=== PATIENT | male | born 1955 | race Caucasian/White ===

== ENCOUNTER 2018-09-30 09:52 | Day surgery (SDC) | payer OTHER ==
[~2018-09-30] VITALS: Ht 193 cm; Wt 157.4 kg
[~2018-09-30 09:52] MED LIST: ALEV220T22 PO; ALLO100T PO; ASPI81TA26 PO; ATOR80TA59 PO; BACL10TA2 PO; BIOT50004 PO; CALC500C16 PO; CALC600T18 PO; CILO100T PO; DICL1GEL3 TOP; DULC5TAB PO; FISH1000 PO; GLUC1CAP10 PO; HYDR25TAB PO; LIDOCAINE 2% INJ 100 MG/5 ML SDV (FOR ANES.) As Ordered ONE; LISI40TA PO; MAGN1TAB26 PO; METF500T13 PO; NICO250C PO; NS 1,000 ML IV ONE; OMEP20CA3 PO; PROAAER10 INH; PROBCAP14 PO; PROPOFOL 200 MG/20 ML VIAL As Ordered ONE; SM P99TA PO; VITA-183 PO; VITA500T PO; [UNRECOGNIZED DRUG - CODE] PO
--- NOTE | 2018-09-30 11:12 | ROOR ---
Patient Name: Thang Bradley Procedure Date: 09/30/2018 10:59 AM Date of : 1955 Age: 63 Room: [facility] Gender: Male Note Status: Finalized Procedure: Upper GI endoscopy Indications: Dysphagia Providers: Marcos Reynoso MD Referring MD: [facility], Admin. Requesting Provider: Medicines: Monitored Anesthesia Care Complications: No immediate complications. Procedure: Pre-Anesthesia Assessment: - The heart rate, respiratory rate, oxygen saturations, blood pressure, adequacy of pulmonary ventilation, and response to care were monitored throughout the procedure. The Endoscope was introduced through the mouth, and advanced to the second part of duodenum. The upper GI endoscopy was accomplished without difficulty. The patient tolerated the procedure well. Findings: The Z-line was regular and was found 45 cm from the incisors. A small hiatal hernia was present. No other significant abnormalities were identified in a careful examination of the stomach. The exam of the duodenum was otherwise normal. Impression: - Z-line regular, 45 cm from the incisors. - Small hiatal hernia. - No specimens collected. - The examination was otherwise normal. Recommendation: - Patient has a contact number available for emergencies. The signs and symptoms of potential delayed complications were discussed with the patient. Return to normal activities tomorrow. Written discharge instructions were provided to the patient. - High fiber diet. - Discharge patient to home. - Continue present medications. - Return to referring physician. - The findings and recommendations were discussed with the patient's family. Marcos Reynoso MD Marcos Reynoso MD 09/30/2018 11:11:46 AM Electronically signed by Marcos Reynoso MD Number of Addenda: 0 Note Initiated On: 09/30/2018 10:59 AM Estimated Blood Loss: Estimated blood loss: none.
[2018-09-30] MEDS ORDERED: PROPOFOL 200 MG/20 ML VIAL As Ordered ONE (11:22)
--- NOTE | 2018-09-30 11:31 | ROOR ---
Patient Name: Thang Bradley Procedure Date: 09/30/2018 11:00 AM Date of : 1955 Age: 63 Room: [facility] Gender: Male Note Status: Finalized Procedure: Total Colonoscopy to Cecum + Cold Snare Polypectomy + Hemoclips Indications: High risk colon cancer surveillance: Personal history of colonic polyps Providers: Marcos Reynoso MD Referring MD: [facility], Admin. Requesting Provider: Medicines: Monitored Anesthesia Care Complications: No immediate complications. Procedure: Pre-Anesthesia Assessment: - The heart rate, respiratory rate, oxygen saturations, blood pressure, adequacy of pulmonary ventilation, and response to care were monitored throughout the procedure. The Colonoscope was introduced through the anus and advanced to the cecum, identified by appendiceal orifice and ileocecal valve. The colonoscopy was performed without difficulty. The patient tolerated the procedure well. The quality of the bowel preparation was excellent. Findings: The perianal and digital rectal examinations were normal. Non-bleeding internal hemorrhoids were found during retroflexion. The hemorrhoids were small and Grade I (internal hemorrhoids that do not prolapse). Multiple small and large-mouthed diverticula were found in the recto-sigmoid colon, sigmoid colon and descending colon. A medium polyp was found in the ascending colon. The polyp was sessile. The polyp was removed with a cold snare. Resection and retrieval were complete. To prevent bleeding after the polypectomy, two hemostatic clips were successfully placed (MR conditional). There was no bleeding at the end of the procedure. The exam was otherwise without abnormality on direct and retroflexion views. Impression: - Non-bleeding internal hemorrhoids. - Diverticulosis in the recto-sigmoid colon, in the sigmoid colon and in the descending colon. - One medium polyp in the ascending colon, removed with a cold snare. Resected and retrieved. Clips (MR conditional) were placed. - The examination was otherwise normal on direct and retroflexion views. - The exam was otherwise normal to the cecum. Recommendation: - Patient has a contact number available for emergencies. The signs and symptoms of potential delayed complications were discussed with the patient. Return to normal activities tomorrow. Written discharge instructions were provided to the patient. - High fiber diet. - Discharge patient to home. - Continue present medications. - Await pathology results. - Telephone GI clinic for pathology results in 1 week. - Check Portal Online for Path Results.([email or web address]) - Repeat colonoscopy in 5 years for surveillance based on pathology results. - Return to referring physician. - The findings and recommendations were discussed with the patient's family. Marcos Reynoso MD Marcos Reynoso MD 09/30/2018 11:31:25 AM Electronically signed by Marcos Reynoso MD Number of Addenda: 0 Note Initiated On: 09/30/2018 11:00 AM Estimated Blood Loss: Estimated blood loss: none.
[2018-09-30 12:07] VITALS: BP 98/54
== END 2018-09-30 12:11 | disposition home or self-care (01) ==
LOC: M OPP 09:52
PROVIDERS: ATTEND Internal Medicine Gastroenterology
DX: D12.2 Benign neoplasm of ascending colon (principal); K64.0 First degree hemorrhoids; K57.30 Diverticulosis of large intestine without perforation or abscess without bleeding; K44.9 Diaphragmatic hernia without obstruction or gangrene; R13.10 Dysphagia, unspecified; Z86.010 Personal history of colon polyps

== ENCOUNTER → 2020-04-28 | Outpatient (CLI) | payer OTHER ==
[~2020-04-28] MED LIST changes: -LIDOCAINE 2% INJ 100 MG/5 ML SDV (FOR ANES.) As Ordered ONE; +NIAC250C16 PO; -NICO250C PO; -NS 1,000 ML IV ONE; +OMEP1CAP73 PO; -OMEP20CA3 PO; -PROPOFOL 200 MG/20 ML VIAL As Ordered ONE; +VITA-243 PO; -VITA500T PO
--- NOTE | 2020-04-28 14:04 | REP ---
INDICATION: LOW BACK PAIN W/ SCIATICA. COMPARISON: Partial lumbar spine series from September 06, 2015.. TECHNIQUE: After the devulcanizer head imaging and the initial T1 weighted turbo spin echo sagittal sequence, the patient became unable to tolerate further imaging and the exam had to be aborted. Imaging was incomplete.. FINDINGS: On the sagittal T1 sequence acquired, lumbar spine vertebral body heights are preserved and alignment is normal. There is not evidence of spondylolysis or spondylolisthesis. There is some degenerative disc change with narrowing at L5-S1 and to a lesser extent L4-5 and L3-4 discs. There is diffuse bulging of the 3 4, 4 5, and 5 1 disc space margins posteriorly. No focal disc protrusion is seen. IMPRESSION: Incomplete exam acquisition as above. Degenerative disc and facet changes L3-4, L4-5, and L5-S1 with diffusely bulging disc margins at each of these 3 levels. <Electronically signed by Devin Carpenter > 04/28/20 1400
== END ==
LOC: M RAD 11:32
PROVIDERS: ATTEND Internal Medicine
DX: M51.36 Other intervertebral disc degeneration, lumbar region (principal); M54.30 Sciatica, unspecified side

== ENCOUNTER → 2020-06-03 | Outpatient (CLI) | payer OTHER ==
[~2020-06-03] MED LIST changes: +HYDR-3490 PO; -HYDR25TAB PO; -LISI40TA PO; +LISI40TA4 PO
--- NOTE | 2020-06-04 07:37 | REP ---
INDICATION: LUNG SCREENING COMPARISON: None. TECHNIQUE: Axial noncontrast images from the thoracic inlet to the upper abdomen using low-dose lung screening technique (LDCT). FINDINGS: Bilateral lung torres are relatively well aerated and demonstrate scattered chronic appearing age-related changes. There is a subtle "tree in bud" type interstitial pattern involving the lingula with small consolidation as well as similar changes in the left lower lobe which may reflect an acute pneumonitis. No further consolidation, obvious significant nodule or mass lesion identified. No effusion. No pneumothorax. Tracheobronchial tree is patent. IMPRESSION: 1. Tree in bud type interstitial changes in the lingula and left lower lobe with small lingular consolidation. Findings may reflect an acute pneumonia/infectious process and clinical correlation is recommended along with short-term follow-up if necessary. 2. No suspicious nodule or mass lesion otherwise noted. <Electronically signed by Walt Urbina > 06/04/20 0733
== END ==
LOC: M RAD 10:08
PROVIDERS: ATTEND Internal Medicine
DX: Z12.2 Encounter for screening for malignant neoplasm of respiratory organs (principal); Z87.891 Personal history of nicotine dependence

== ENCOUNTER → 2020-07-29 | Outpatient (CLI) | payer OTHER ==
[~2020-07-29] MED LIST changes: +BENPAD TOP; +CVSTAB PO; +FLON1SPR; +MICO2CRE42 TOP; +NARC1SPR NARES; +OXYC-1 PO; +PANT20TA6 PO; +STIO1AER INH; +UREA20CR4 EXT
== END ==
LOC: M LABSMTC 10:56
PROVIDERS: ATTEND Internal Medicine
DX: M54.40 Lumbago with sciatica, unspecified side (principal); Z20.828 Contact with and (suspected) exposure to other viral communicable diseases; Z11.59 Encounter for screening for other viral diseases

== ENCOUNTER 2020-08-03 09:46 | Outpatient (CLI) | payer OTHER ==
[2020-08-03] MEDS ORDERED: propofoL 200 MG/20 ML VIAL ONE (09:47)
[2020-08-03] MEDS ORDERED: LIDOCAINE 2% 100MG/5ML SDV (FOR ANES.) ONE (09:47)
--- NOTE | 2020-08-03 10:27 | REP ---
INDICATION: MRI CLEARANCE. COMPARISON: None. TECHNIQUE: Bernabe and lateral views of the skull are obtained FINDINGS: . there is no evidence of intraorbital or periorbital opaque foreign body. The paranasal sinuses are clear. Sinus margins are intact. Patient is edentulous. IMPRESSION: No opaque foreign body seen. Clear for MRI. <Electronically signed by Devin Carpenter > 08/03/20 1024
[2020-08-03] MEDS ORDERED: fentaNYL 100 MCG/2 ML INJECTION (J3010) As Ordered ONE (11:04)
[2020-08-03 12:00] VITALS: BP 106/59
--- NOTE | 2020-08-03 12:34 | REPVR ---
PROCEDURE INFORMATION: Exam: MR Lumbar Spine Without Contrast Exam date and time: 08/03/2020 11:56 AM Age: 65 years old Clinical indication: Lumbago with sciatica; Bilateral; Additional info: Lbp w/ sciatica milena legs TECHNIQUE: Imaging protocol: Multiplanar magnetic resonance images of the lumbar spine without intravenous contrast. COMPARISON: MRI-Spine, L.S. without con 04/28/2020 12:01 PM (only sagittal T1 and coronal spd manager images are available) FINDINGS: Vertebrae: Unremarkable. Spinal cord: Normal signal. No cord compression. L1-L2: No significant disc disease. No significant spinal canal stenosis. No neural foraminal stenosis. L2-L3: Disc bulging extends into both neural foramen causing mild bilateral neural foraminal narrowing. L3-L4: There is degenerative disc disease including disc space narrowing and dessication. There is a moderate disc bulge with a moderate superimposed right subarticular/foraminal disc herniation, not fully characterized due to patient motion artifact. There is compromise of the right lateral recess. There is moderate right-sided neuroforaminal narrowing. There is mild left-sided neuroforaminal narrowing. There is facet arthropathy and ligamentum flavum hypertrophy. There is moderate spinal canal stenosis. L4-L5: There is mild retrolisthesis at this level. There is disc desiccation. There is a moderate disc bulge with a small superimposed right foraminal disc herniation. There is moderate right-sided neuroforaminal narrowing. There is mild left-sided neuroforaminal narrowing. There is facet arthropathy and ligamentum flavum hypertrophy. There is mild/moderate spinal canal stenosis. L5-S1: There is disc space narrowing and desiccation. There are moderate degenerative end plate changes at this level. There is a moderate disc/osteophyte complex that flattens the ventral thecal sac. There is moderate bilateral neural foraminal narrowing. There is facet arthropathy and ligamentum flavum hypertrophy. There is mild spinal canal stenosis. Soft tissues: Unremarkable. Other findings: Examination is limited due to patient motion artifact. There is congenital spinal canal stenosis which is exacerbated by multilevel degenerative changes. IMPRESSION: 1. Examination is limited due to patient motion artifact. 2. There is congenital spinal canal stenosis which is exacerbated by multilevel degenerative changes. 3. Multilevel degenerative changes causing variable degrees of spinal canal and neuroforaminal narrowing as described above. Moderate spinal canal stenosis at L3/4. Disc herniations at L3/4 and L4/5. By report, these findings have progressed since prior study. Prior MRI is not available in its entirety and therefore direct comparison is limited. Please see details above. Electronically signed by: Femi Fuentes On 08/03/2020 12:34:19 PM
== END 2020-08-03 12:19 | disposition home or self-care (01) ==
LOC: M RAD 09:46
PROVIDERS: ATTEND Internal Medicine
DX: M54.41 Lumbago with sciatica, right side (principal); M54.42 Lumbago with sciatica, left side
CPT/HCPCS: 70250; 72148; J3010

== ENCOUNTER → 2020-11-23 | Outpatient (CLI) | payer OTHER ==
--- NOTE | 2020-11-23 15:09 | REP ---
INDICATION: ATELECTASIS COMPARISON: 06/03/2020 a low-dose screening CT examination of the lungs TECHNIQUE: Standard helical technique without intravenous contrast administration FINDINGS: There is no mediastinal or hilar adenopathy. There are no pleural or pericardial effusions. The imaged upper abdomen and imaged osseous structures are within normal limits. Evaluation of the lung torres shows no significant change in appearance of the reticulonodular tree-in-bud appearance in the lingula with improvement of the finding seen previously in the left lower lobe region. There are tiny biapical pleural blebs. There are no new abnormal nodules, masses, or opacities. Chronic subsegmental atelectasis is seen in the lingula status quo. IMPRESSION: Chronic lung field findings as described above. There are no new abnormalities. There is no revised Fleischner society criteria on the recommendation for follow-up of such findings. Follow-up should be based on clinical assessment and patient's history. <Electronically signed by Jose Braun > 11/23/20 4906
== END ==
LOC: M RAD 14:16
PROVIDERS: ATTEND Internal Medicine
DX: J98.11 Atelectasis (principal)

== ENCOUNTER → 2021-04-12 | Outpatient (REF) | payer OTHER ==
[~2021-04-12] MED LIST changes: +BITTER MELON PO; +CO Q1CAP2 PO; +GNP99TAB3 PO; +JARD1TAB3 PO; +MIRA3350 PO; +MULBERRY LEAF PO; -SM P99TA PO; +THYROID ENERGY PO
== END ==
LOC: M LAB REF 13:53
PROVIDERS: ATTEND Dermatology
DX: L72.0 Epidermal cyst (principal)

== ENCOUNTER → 2021-06-28 | Outpatient (CLI) | payer OTHER ==
[~2021-06-28] MED LIST changes: -BITTER MELON PO; -CO Q1CAP2 PO; -JARD1TAB3 PO; -MULBERRY LEAF PO; -THYROID ENERGY PO
== END ==
LOC: M RAD 10:21
PROVIDERS: ATTEND Internal Medicine
DX: Z12.2 Encounter for screening for malignant neoplasm of respiratory organs (principal); Z87.891 Personal history of nicotine dependence

== ENCOUNTER → 2021-10-14 | Outpatient (CLI) | payer MEDICARE, OTHER ==
[~2021-10-14] MED LIST changes: +BIOT1CAP3 PO; +BITTER MELON PO; +CALC600T60 PO; +CO Q1CAP2 PO; +GNP1000T11 PO; +JARD1TAB3 PO; +MSM1000C PO; +MULBERRY LEAF PO; +OMEG10002 PO; +OMEP-173 PO; +POTA99CA2 PO; +RA P1CAP3 PO; +THYROID ENERGY PO; +VITA100054 PO; +VITA500C24 PO
== END ==
LOC: M LABSMTC 09:17
PROVIDERS: ATTEND Anesthesiology
DX: Z01.812 Encounter for preprocedural laboratory examination (principal); Z20.822 Contact with and (suspected) exposure to COVID-19

== ENCOUNTER 2021-10-19 08:27 | Day surgery (SDC) | payer OTHER ==
[~2021-10-19] VITALS: Ht 193 cm; Wt 157.4 kg
[~2021-10-19 08:27] MED LIST changes: +NS 1,000 ML IV ONE
[2021-10-19] MEDS ORDERED: propofoL 200 MG/20 ML VIAL As Ordered ONE ×3 (09:43→10:09)
[2021-10-19] MEDS ORDERED: LIDOCAINE 2% 100MG/5ML SDV (FOR ANES.) As Ordered ONE (09:43)
[2021-10-19 10:28] VITALS: BP 120/64
== END 2021-10-19 10:47 | disposition home or self-care (01) ==
LOC: M OPP 08:27
PROVIDERS: ATTEND Internal Medicine Gastroenterology
DX: Z12.11 Encounter for screening for malignant neoplasm of colon (principal); Z86.010 Personal history of colon polyps; K64.0 First degree hemorrhoids; G47.33 Obstructive sleep apnea (adult) (pediatric); Z99.89 Dependence on other enabling machines and devices; J44.9 Chronic obstructive pulmonary disease, unspecified; Z79.1 Long term (current) use of non-steroidal anti-inflammatories (NSAID); Z79.02 Long term (current) use of antithrombotics/antiplatelets; Z79.82 Long term (current) use of aspirin; Z79.84 Long term (current) use of oral hypoglycemic drugs; Z79.899 Other long term (current) drug therapy; Z87.891 Personal history of nicotine dependence

== ENCOUNTER → 2021-12-13 | Outpatient (CLI) | payer OTHER ==
[~2021-12-13] MED LIST changes: -NS 1,000 ML IV ONE
== END ==
LOC: M RAD 14:10
PROVIDERS: ATTEND Internal Medicine
DX: M47.9 Spondylosis, unspecified (principal); M16.0 Bilateral primary osteoarthritis of hip

== ENCOUNTER 2022-01-24 11:43 | Emergency (ER) | payer OTHER ==
[~2022-01-24] VITALS: Ht 193 cm; Wt 165.9 kg
[2022-01-24 15:38] LABS: BASO % 0.5 % (0.0-1.0); EOS % 0.1 % (0.0-3.0); HEMATOCRIT 34.2 % (42.0-52.0); HEMOGLOBIN 10.7 g/dl (13.5-17.5); LYMPH # 1.1 10^3/uL (1.5-5.0); LYMPH % 13.7 % (24.0-44.0); MEAN CORPUSCULAR HEMOGLOBIN 28.8 pg (27.0-33.0); MEAN CORPUSCULAR HGB CONC 31.3 g/dl (32.0-36.5); MEAN CORPUSCULAR VOLUME 91.9 fl (80.0-96.0); MONO # 0.5 10^3/uL (0.0-0.8); MONO % 6.2 % (2.0-8.0); NEUTROPHILS # 6.5 10^3/uL (1.5-8.5); NEUTROPHILS % 79.3 % (36.0-66.0); PLATELET COUNT, AUTOMATED 118 10^3/uL (150-450); RED BLOOD COUNT 3.72 10^6/uL (4.30-6.10); WHITE BLOOD COUNT 8.2 10^3/uL (4.0-10.0)
[2022-01-24] MEDS ORDERED: ACETAMINOPHEN 650MG ER TAB (TYLENOL ARTHRITIS) PO STA (15:43)
[2022-01-24 17:24] VITALS: BP 172/83
== END 2022-01-24 17:33 | disposition home or self-care (01) ==
LOC: M ED 11:43
DX: M17.11 Unilateral primary osteoarthritis, right knee (principal); M25.461 Effusion, right knee; M51.37 Other intervertebral disc degeneration, lumbosacral region; E11.9 Type 2 diabetes mellitus without complications; I10 Essential (primary) hypertension; J44.9 Chronic obstructive pulmonary disease, unspecified; E78.5 Hyperlipidemia, unspecified; G47.33 Obstructive sleep apnea (adult) (pediatric); Z99.89 Dependence on other enabling machines and devices; Z87.891 Personal history of nicotine dependence; Z79.899 Other long term (current) drug therapy; Z79.82 Long term (current) use of aspirin; Z79.84 Long term (current) use of oral hypoglycemic drugs

== ENCOUNTER → 2022-07-26 | Outpatient (CLI) | payer MEDICARE, OTHER ==
[~2022-07-26] MED LIST changes: -CILO100T PO; +CILO100T3 PO; -MSM1000C PO; +RA M1000 PO; +[UNRECOGNIZED DRUG - CODE] PO; -[UNRECOGNIZED DRUG - CODE] PO
== END ==
LOC: M RAD 10:09
PROVIDERS: ATTEND Internal Medicine
DX: M06.38 Rheumatoid nodule, vertebrae (principal)
CPT/HCPCS: 78306; A9503

== ENCOUNTER → 2022-11-08 | Outpatient (CLI) | payer MEDICARE, OTHER | LOC: M RAD 16:36 | PROVIDERS: ATTEND Internal Medicine | DX: Z12.2 Encounter for screening for malignant neoplasm of respiratory organs (principal); Z87.891 Personal history of nicotine dependence; J47.9 Bronchiectasis, uncomplicated; I70.0 Atherosclerosis of aorta; I25.10 Atherosclerotic heart disease of native coronary artery without angina pectoris ==